=== PATIENT | male | born 1970 | race African-American/Black ===

== ENCOUNTER 2018-03-19 11:34 | Emergency (ER) | payer OTHER ==
[~2018-03-19] VITALS: Ht 182.9 cm; Wt 83.9 kg
[2018-03-19 12:12] VITALS: BP 136/72
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
[2018-03-19] MEDS ORDERED: IBUPROFEN600 MG ORAL (12:22)
[2018-03-19 12:49] VITALS: BP 136/72
--- NOTE | 2018-03-19 14:10 | Diagnostic Imaging Report ---
Indication: pain Right hand pain Findings: 3 views of the right hand were obtained. Normal bony mineralization and alignment are demonstrated. No acute fractures, erosions, or periosteal reaction are seen. Soft tissues are unremarkable. Impression: No acute findings.
== END 2018-03-19 12:51 ==
LOC: EDBD 11:34 → EMR 12:20
DX: S60.221A Contusion of right hand, initial encounter (principal); W22.8XXA Striking against or struck by other objects, initial encounter; Y92.9 Unspecified place or not applicable; F17.200 Nicotine dependence, unspecified, uncomplicated
CPT/HCPCS: 99283